=== PATIENT | female | born 1995 | race Caucasian/White ===

== ENCOUNTER 2017-12-04 04:09 | Emergency (ER) | payer OTHER ==
[2017-12-04 04:18] VITALS: PULSE 70; TEMP 97.8
[2017-12-04 04:36] LABS: Appearance,Urine Turbid (Clear); Bacteria,Urine Few /hpf; Bilirubin,Urine Negative (Negative); Blood,Urine Large (Negative); Color,Urine Yellow; Glucose,Urine (UA) Negative (Negative); Ketones,Urine Negative (Negative); Leukocyte Esterase,Urine Large (Negative); Mucus,Urine Occasional /hpf; Nitrite,Urine Negative (Negative); PH, Urine 6.5 (5.0-8.0); Protein,Urine 1+ (Negative); RBC,Urine >182 /hpf (0-5); Specific Gravity,Urine 1.018 (1.001-1.035); Squamous Epithelial Cell,Urine 8 /hpf (0-4); Urobilinogen,Urine <2.0 mg/dL (<2.0); WBC,Urine >182 /hpf (0-5)
[2017-12-04] MEDS ORDERED: AMOXIC-POT CLAV 875-125MG 1 EACH TAB PO STA (04:47)
[2017-12-04] MEDS ORDERED: PHENAZOPYRIDINE 100 MG TAB PO STA (05:08)
--- NOTE | 2017-12-04 05:08 | ED ---
Female Urogenital HPI - General Chief complaint: Urogenital Stated complaint: UTI Time Seen by Provider: 12/04/17 04:24 Source: patient Mode of arrival: ambulatory Limitations: no limitations - History of Present Illness Initial comments: 21 years old female comes in with frequency urgency dysuria, she started about 2 days, also complaining about pain in the suprapubic area she denies any fever no chills no nausea no vomiting. Past medical history is unremarkable past surgical history is unremarkable - Related Data Home Medications Medication Instructions Recorded Confirmed Levonorgestrel-Ethin Estradiol 1 tab PO DAILY 01/09/16 01/09/16 [Falmina-28 Tablet] Previous Rx's Medication Instructions Recorded Amoxicillin/Potassium Clav 1 each PO Q12HR #20 tab 01/09/16 [Augmentin 875-125 Tablet] Fluticasone Nasal [place] [Flonase 1 spray EA NOSTRIL DAILY PRN #1 01/09/16 Nasal [place]] bottle Amoxic-Pot Clav 875-125Mg 1 tab PO Q12HR #14 tablet 12/04/17 [Augmentin 875-125] Phenazopyridine [Pyridium] 200 mg PO TID #6 tablet 12/04/17 Allergies Allergy/AdvReac Type Severity Reaction Status Date / Time Sulfa (Sulfonamide Allergy Rash/Hives Verified 12/04/17 04:18 Antibiotics) Review of Systems ROS Statement: Those systems with pertinent positive or pertinent negative responses have been documented in the HPI. ROS Other: All systems not noted in ROS Statement are negative. Past Medical History Past Medical History: No Reported History Additional Past Medical History / Comment(s): HYPOGLYCEMIA History of Any Multi-Drug Resistant Organisms: None Reported Past Surgical History: No Surgical Hx Reported Past Psychological History: No Psychological Hx Reported Smoking Status: Never smoker Past Alcohol Use History: None Reported Past Drug Use History: None Reported General Exam - General Exam Comments Initial Comments: General: The patient is awake and alert, in no distress, and does not appear acutely ill. Skin: Skin is warm and dry and no rashes or lesions are noted. Eye: Pupils are equal, round and reactive to light, extra-ocular movements are intact; there is normal conjunctiva bilaterally. Ears, nose, mouth and throat: There are moist mucous membranes and no oral lesions. Neck: The neck is supple, there is no tenderness or JVD. Cardiovascular: There is a regular rate and rhythm. No murmur, rub or gallop is appreciated. Respiratory: To auscultation bilateral, no wheezing no rhonchi no distress respiratory clancy noticed Gastrointestinal: Mildly tender over suprapubic area no tenderness over the flank areas positive bowel sounds no guarding no rebounds Back: There is no tenderness to palpation in the midline. There is no obvious deformity. Musculoskeletal: Normal ROM, no tenderness, There is no pedal edema. There is no calf tenderness or swelling. No cords were appreciated. Neurological: CN II-XII intact, Cranial nerves III through XII are intact. There are no obvious motor or sensory deficits. Coordination appears grossly intact. Speech is normal. Psychiatric: Cooperative, appropriate mood & affect, normal judgment. Limitations: no limitations Course Vital Signs 12/04/17 04:16 Temperature 97.8 F Pulse Rate 70 Respiratory 18 Rate Blood Pressure 118/72 O2 Sat by Pulse 100 Oximetry UA was reviewed, it's quite unremarkable she be getting antibiotics and will send urine culture Medical Decision Making - Lab Data Lab Results 12/04/17 Range/Units 04:14 Urine Color Yellow Urine Appearance Turbid H (Clear) Urine pH 6.5 (5.0-8.0) Ur Specific [place] 1.018 (1.001-1.035) Urine Protein 1+ H (Negative) Urine Glucose (UA) Negative (Negative) Urine Ketones Negative (Negative) Urine Blood Large H (Negative) Urine Nitrite Negative (Negative) Urine Bilirubin Negative (Negative) Urine Urobilinogen <2.0 (<2.0) mg/dL Ur Leukocyte Esterase Large H (Negative) Urine RBC >182 H (0-5) /hpf Urine WBC >182 H (0-5) /hpf Urine WBC Clumps Many H (None) /hpf Ur Squamous Epith Cells 8 H (0-4) /hpf Urine Bacteria Few H (None) /hpf Urine Mucus Occasional H (None) /hpf Disposition Clinical Impression: Cystitis Disposition: HOME SELF-CARE Instructions: Urinary Tract Infection in Women (ED) Prescriptions: Amoxic-Pot Clav 875-125Mg [Augmentin 875-125] 1 tab PO Q12HR #14 tablet Phenazopyridine [Pyridium] 200 mg PO TID #6 tablet Is patient prescribed a controlled substance at d/c from ED?: No Referrals: Nonstaff,Physician [Primary Care Provider] - 1-2 days
[2017-12-04 05:47] VITALS: BP 120/80; RESP 16
== END 2017-12-04 05:48 | disposition home or self-care (01) ==
LOC: EC 04:09
DX: N30.90 Cystitis, unspecified without hematuria (principal); Z79.3 Long term (current) use of hormonal contraceptives; Z88.2 Allergy status to sulfonamides
CPT/HCPCS: 81001; 87077; 87086; 87186; 99283

== ENCOUNTER 2019-01-26 09:46 | Emergency (ER) | payer OTHER ==
--- NOTE | 2019-01-26 10:31 | ED ---
Female Urogenital HPI - General Chief complaint: Vaginal Bleeding Stated complaint: early /vaginal bleeding Time Seen by Provider: 01/26/19 09:53 Source: patient, RN notes reviewed Mode of arrival: ambulatory Limitations: no limitations - History of Present Illness Initial comments: 23-year-old female presents emergency Department with chief complaint of vaginal bleeding early . Patient states that she had a positive test on January 09. Patient states that her [facility] is Dr. Vasquez did go in for an appointment for labwork. She has scheduled next week. patient is a0. she had some mild bleeding when she wiped this morning. patient denies any current cramping did have some mild cramping. patient has no back pain no flank pain no dysuria Last Menstrual Period: 11/26/18 - Related Data Home Medications Medication Instructions Recorded Confirmed Calcium Carbonate [Calcium] 600 mg PO DAILY 01/26/19 01/26/19 Ferrous Sulfate [Feosol] 325 mg PO DAILY 01/26/19 01/26/19 Folic Acid 0.4 mg PO DAILY 01/26/19 01/26/19 Multivitamin [Multivitamins Adult 1 tab PO DAILY 01/26/19 01/26/19 Gummies] Allergies Allergy/AdvReac Type Severity Reaction Status Date / Time Sulfa (Sulfonamide Allergy Rash/Hives Verified 01/26/19 10:05 Antibiotics) Review of Systems ROS Statement: Those systems with pertinent positive or pertinent negative responses have been documented in the HPI. ROS Other: All systems not noted in ROS Statement are negative. Past Medical History Past Medical History: No Reported History Additional Past Medical History / Comment(s): HYPOGLYCEMIA History of Any Multi-Drug Resistant Organisms: None Reported Past Surgical History: No Surgical Hx Reported Past Psychological History: No Psychological Hx Reported Smoking Status: Never smoker Past Alcohol Use History: None Reported Past Drug Use History: None Reported General Exam Limitations: no limitations General appearance: alert, in no apparent distress Head exam: Present: atraumatic, normocephalic, normal inspection Neck exam: Present: normal inspection, full ROM. Absent: tenderness, meningismus, lymphadenopathy Respiratory exam: Present: normal lung sounds bilaterally. Absent: respiratory distress, wheezes, rales, rhonchi, stridor Cardiovascular Exam: Present: regular rate, normal rhythm, normal heart sounds. Absent: systolic murmur, diastolic murmur, rubs, gallop, clicks GI/Abdominal exam: Present: soft, normal bowel sounds. Absent: distended, tend erness, guarding, rebound, rigid Back exam: Absent: CVA tenderness (R), CVA tenderness (L) Course Vital Signs 01/26/19 01/26/19 09:48 11:51 Temperature 98.2 F 97.8 F Pulse Rate 77 70 Respiratory 16 18 Rate Blood Pressure 128/83 123/67 O2 Sat by Pulse 98 100 Oximetry Medical Decision Making - Medical Decision Making 23-year-old female presented for vaginal bleeding early . Patient had workup including CBC, BMP, hCG quantitative and AB Rh. Patient is A- blood type RhoGAM was ordered. Patient's primary hCG was 14,000 it did trend up to 19,000. Patient will have recheck in 2 days. And concern for miscarriage at this time. Patient will follow-up with [facility] return for any worsening symptoms. - Lab Data Result diagrams: 01/26/19 10:40 01/26/19 10:40 Lab Results 01/26/19 01/26/19 01/26/19 Range/Units 10:40 10:40 10:40 WBC 6.7 (3.8-10.6) k/uL RBC 4.43 (3.80-5.40) m/uL Hgb 12.9 (11.4-16.0) gm/dL Hct 38.8 (34.0-46.0) % MCV 87.6 (80.0-100.0) fL MCH 29.2 (25.0-35.0) pg MCHC 33.3 (31.0-37.0) g/dL RDW 13.1 (11.5-15.5) % Plt Count 234 (150-450) k/uL Neutrophils % 67 % Lymphocytes % 24 % Monocytes % 6 % Eosinophils % 1 % Basophils % 1 % Neutrophils # 4.4 (1.3-7.7) k/uL Lymphocytes # 1.6 (1.0-4.8) k/uL Monocytes # 0.4 (0-1.0) k/uL Eosinophils # 0.1 (0-0.7) k/uL Basophils # 0.0 (0-0.2) k/uL Sodium 138 (137-145) mmol/L Potassium 4.1 (3.5-5.1) mmol/L Chloride 101 (98-107) mmol/L Carbon Dioxide 30 (22-30) mmol/L Anion Gap 7 mmol/L BUN 13 (7-17) mg/dL Creatinine 0.79 (0.52-1.04) mg/dL Est GFR (CKD-EPI)AfAm >90 (>60 ml/min/1.73 sqM) Est GFR (CKD-EPI)NonAf >90 (>60 ml/min/1.73 sqM) Glucose 90 (74-99) mg/dL Calcium 9.6 (8.4-10.2) mg/dL HCG, Quant 68354.3 mIU/mL Urine Color Urine Appearance (Clear) Urine pH (5.0-8.0) Ur Specific [place] (1.001-1.035) Urine Protein (Negative) Urine Glucose (UA) (Negative) Urine Ketones (Negative) Urine Blood (Negative) Urine Nitrite (Negative) Urine Bilirubin (Negative) Urine Urobilinogen (<2.0) mg/dL Ur Leukocyte Esterase (Negative) Urine RBC (0-5) /hpf Urine WBC (0-5) /hpf Ur Squamous Epith Cells (0-4) /hpf Urine Bacteria (None) /hpf Urine Mucus (None) /hpf Blood Type A Negative Blood Type Recheck No 01/26/19 Range/Units 10:45 WBC (3.8-10.6) k/uL RBC (3.80-5.40) m/uL Hgb (11.4-16.0) gm/dL Hct (34.0-46.0) % MCV (80.0-100.0) fL MCH (25.0-35.0) pg MCHC (31.0-37.0) g/dL RDW (11.5-15.5) % Plt Count (150-450) k/uL Neutrophils % % Lymphocytes % % Monocytes % % Eosinophils % % Basophils % % Neutrophils # (1.3-7.7) k/uL Lymphocytes # (1.0-4.8) k/uL Monocytes # (0-1.0) k/uL Eosinophils # (0-0.7) k/uL Basophils # (0-0.2) k/uL Sodium (137-145) mmol/L Potassium (3.5-5.1) mmol/L Chloride (98-107) mmol/L Carbon Dioxide (22-30) mmol/L Anion Gap mmol/L BUN (7-17) mg/dL Creatinine (0.52-1.04) mg/dL Est GFR (CKD-EPI)AfAm (>60 ml/min/1.73 sqM) Est GFR (CKD-EPI)NonAf (>60 ml/min/1.73 sqM) Glucose (74-99) mg/dL Calcium (8.4-10.2) mg/dL HCG, Quant mIU/mL Urine Color Light Red Urine Appearance Cloudy H (Clear) Urine pH 7.0 (5.0-8.0) Ur Specific [place] 1.027 (1.001-1.035) Urine Protein 1+ H (Negative) Urine Glucose (UA) Negative (Negative) Urine Ketones Negative (Negative) Urine Blood Large H (Negative) Urine Nitrite Negative (Negative) Urine Bilirubin Negative (Negative) Urine Urobilinogen <2.0 (<2.0) mg/dL Ur Leukocyte Esterase Negative (Negative) Urine RBC >182 H (0-5) /hpf Urine WBC 3 (0-5) /hpf Ur Squamous Epith Cells 9 H (0-4) /hpf Urine Bacteria Few H (None) /hpf Urine Mucus Occasional H (None) /hpf Blood Type Blood Type Recheck Disposition Clinical Impression: Threatened miscarriage in early Disposition: HOME SELF-CARE Condition: Stable Instructions (If sedation given, give patient instructions): Threatened Miscarriage (ED) Additional Instructions: Please return to the Emergency Department if symptoms worsen or any other concerns. Is patient prescribed a controlled substance at d/c from ED?: No Referrals: Domenica Alatorre MD [Primary Care Provider] - 1-2 days Kylee Vasquez MD [REFERRING] - 1-2 days Time of Disposition: 12:18
[2019-01-26 11:16] LABS: Basophils % (A) 1 %; Eosinophils # (A) 0.1 k/uL (0-0.7); Eosinophils % (A) 1 %; HCT 38.8 % (34.0-46.0); HGB 12.9 gm/dL (11.4-16.0); Lymphocytes # (A) 1.6 k/uL (1.0-4.8); Lymphocytes % (A) 24 %; MCH 29.2 pg (25.0-35.0); MCHC 33.3 g/dL (31.0-37.0); MCV 87.6 fL (80.0-100.0); Mean Platelet Volume 6.6; Monocytes # (A) 0.4 k/uL (0-1.0); Monocytes % (A) 6 %; Neutrophils # (A) 4.4 k/uL (1.3-7.7); Neutrophils % (A) 67 %; Platelet Count 234 k/uL (150-450); RBC 4.43 m/uL (3.80-5.40); RDW 13.1 % (11.5-15.5); WBC 6.7 k/uL (3.8-10.6)
[2019-01-26 11:20] LABS: African American GFR (CKD) >90 (>60 ml/min/1.73 sqM); Anion Gap 7 mmol/L; Blood Urea Nitrogen 13 mg/dL (7-17); Calcium 9.6 mg/dL (8.4-10.2); Carbon Dioxide 30 mmol/L (22-30); Chloride 101 mmol/L (98-107); Glucose 90 mg/dL (74-99); Potassium 4.1 mmol/L (3.5-5.1); Sodium 138 mmol/L (137-145)
--- NOTE | 2019-01-26 11:49 | US ---
EXAMINATION TYPE: Transabdominal DATE OF EXAM: 01/26/2019 11:36 AM COMPARISON: NONE CLINICAL HISTORY: Pain. Vaginal bleeding today EXAM PERFORMED: Transvaginal (TV) and Transabdominal (TA) EXAM MEASUREMENTS: GESTATIONAL AGE / DATING Physician Established: Not yet established Dates by LMP: (8 weeks/5 days) EDC: 09/02/19 Dates by First Scan: No previous this is first scan Dates by Current Scan for: (5 weeks/1 days) - MSD MATERNAL ANATOMY Uterus: 7.3 x 3.7 x 5.6cm Right Ovary: 2.5 x 1.5 x 1.4cm Left Ovary: 2.6 x 2.4 x 2.2cm Post CDS / Adnexa: appears wnl Presence of free fluid: no Presence of corpus luteal cyst: yes, complex area left ovary = 1.8 x 1.5 x 1.7cm GESTATION / SURVEY MSD: 1.1cm (5 weeks/1 days) Yolk Sac (normal less than 6mm): 2.5mm No evidence of pole at this time Date of LMP: 11/26/18 Beta HcG (if available): Not available at this time Gestational sac with yolk sac identified within uterus. No evidence of pole at this time. Proba ble corpus luteum left ovary IMPRESSION: Findings may reflect normal early IUP. Spontaneous or ectopic difficult to exclude . Correlate with serial beta hCG and/or ultrasound.
[2019-01-26 11:52] VITALS: RESP 18
[2019-01-26 11:55] LABS: Appearance,Urine Cloudy (Clear); Bacteria,Urine Few /hpf; Bilirubin,Urine Negative (Negative); Blood,Urine Large (Negative); Color,Urine Light Red; Glucose,Urine (UA) Negative (Negative); Ketones,Urine Negative (Negative); Leukocyte Esterase,Urine Negative (Negative); Mucus,Urine Occasional /hpf; Nitrite,Urine Negative (Negative); Protein,Urine 1+ (Negative); RBC,Urine >182 /hpf (0-5); Specific Gravity,Urine 1.027 (1.001-1.035); Squamous Epithelial Cell,Urine 9 /hpf (0-4); Urobilinogen,Urine <2.0 mg/dL (<2.0)
[2019-01-26] MEDS ORDERED: Rhogam IMMUNE GLOBULIN 1,500 UNIT/1 ML IM ONE (11:59)
[2019-01-26 12:07] LABS: HCG,Quantitative Serum 19726.3 mIU/mL
[2019-01-26 13:25] VITALS: BP 122/68; PULSE 79; TEMP 97.6
== END 2019-01-26 13:24 | disposition home or self-care (01) ==
LOC: EC 09:46
DX: O20.0 Threatened abortion (principal); Z3A.01 Less than 8 weeks gestation of pregnancy; Z79.899 Other long term (current) drug therapy; Z88.2 Allergy status to sulfonamides
CPT/HCPCS: 36415; 86900; 86901; 80048; 85025; 86850; 81001; 84702; 76801; 76817; 99284; 96372; J2791

== ENCOUNTER → 2019-01-28 | Outpatient (CLI) | payer OTHER | END | disposition home or self-care (01) | LOC: LABWHC1 10:11 | PROVIDERS: ATTEND Physician Assistant | DX: O20.0 Threatened abortion (principal) | CPT/HCPCS: 36415; 84702 ==

== ENCOUNTER → 2024-04-18 | Outpatient (CLI) | payer OTHER | END | disposition home or self-care (01) | LOC: LABWHC1 12:33 → MERGE 12:33 | PROVIDERS: ATTEND Family Medicine | CPT/HCPCS: 36415; 84702 ==

== ENCOUNTER → 2024-09-05 | Outpatient (CLI) | payer OTHER ==
[2024-09-05 16:15] LABS: Prothrombin Time 11.2 sec (9.9-11.9)
[2024-09-05 16:19] LABS: BUN/Creat Ratio 22.43 Ratio (12.00-20.00); Blood Urea Nitrogen 15.7 mg/dL (9.0-27.0); Carbon Dioxide 29.5 mmol/L (21.6-31.8); Chloride 103 mmol/L (96-109); Glucose 78 mg/dL (70-110); Potassium 4.2 mmol/L (3.5-5.5); Sodium 141 mmol/L (135-145)
[2024-09-05 16:20] LABS: ALT 13 U/L (8-44); AST 17 U/L (13-35); Albumin 4.5 g/dL (3.8-4.9); Alkaline Phosphatase 60 U/L (41-126); Calcium 9.2 mg/dL (8.7-10.3); Globulin 2.5 g/dL (1.6-3.3); Total Bilirubin 0.2 mg/dL (0.3-1.2)
[2024-09-05 17:11] LABS: HCT 37.3 % (37.2-46.3); HGB 12.2 g/dL (12.0-15.0); MCH 29.2 pg (27.0-32.0); MCHC 32.7 g/dL (32.0-37.0); MCV 89.2 FL (80.0-97.0); Mean Platelet Volume 9.6 FL (9.5-12.2); NRBC Per 100 WBC 0 X 10*3/uL (0.00-0.01); Platelet Count 338 X 10*3/uL (140-440); RBC 4.18 X 10*6/uL (4.10-5.20); RDW 12.1 % (11.5-14.5); WBC 7.79 X 10*3/uL (4.50-10.00)
== END | disposition home or self-care (01) ==
LOC: LABPAT 11:39
PROVIDERS: ATTEND Orthopaedic Surgery
DX: Z01.812 Encounter for preprocedural laboratory examination (principal); Z22.322 Carrier or suspected carrier of Methicillin resistant Staphylococcus aureus; M47.816 Spondylosis without myelopathy or radiculopathy, lumbar region; I15.8 Other secondary hypertension; Z79.899 Other long term (current) drug therapy
CPT/HCPCS: 80053; 85027; 85610; 86850; 86900; 86901; 87070

== ENCOUNTER 2024-09-15 10:11 | Day surgery (SDC) | payer OTHER ==
[~2024-09-15 10:11] MED LIST: HYDROmorphone 0.5 MG/0.5 ML SYRINGE IVP PRN; LIDOCAINE 1% (10MG/ML) FOR IV START INTRADERMA PRN; ONDANSETRON 4 MG/2 ML VIAL IVP PRN; TRANEXAMIC 1,000 MG/100ML-NACL 1,000 MG in SALINE 1 100ML.BAG IVPB PRN; fentaNYL (PF) 50 MCG/ML 2 ML AMP IVP PRN
[2024-09-15] MEDS: IV FLUID CONTINUATION 1,000 ML IV ONE ×3 (10:53→13:54)
[2024-09-15 10:56] LABS: Glucose,Whole Blood 100 mg/dL (70-110)
[2024-09-15] MEDS: GABAPENTIN 300 MG CAP PO PRN (10:57)
[2024-09-15] MEDS: ACETAMINOPHEN TAB 500 MG TAB PO PRN (10:57)
[2024-09-15] MEDS: LACTATED RINGERS 1,000 ML IV SCH (10:59)
[2024-09-15] MEDS: ONDANSETRON 4 MG/2 ML VIAL IVP ONE (10:59)
[2024-09-15] MEDS: DEXAMETHASONE SOD PHOSPHATE 4 MG/ML 1 ML VIAL IV ONE (10:59)
[2024-09-15] MEDS: MIDAZOLAM 2 MG/2 ML VIAL IV PRN (11:03)
--- NOTE | 2024-09-15 11:53 | P.HPOR ---
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 Her symptoms include progressive low back pain with severe throbbing and shooting pain during bending, twisting, prolonged sitting, and stair climbing. 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 Physical examination demonstrated positive bilateral SI joint tests, restricted lumbar ROM, and paralumbar tenderness. Previous treatment included multiple SI joint injections with >50% relief, with the most recent left SI joint injection on 06/20/24 providing one month of relief. Based on clinical findings and imaging, surgical intervention with L5-S1 medial branch transection has been recommended. 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 Carlos presents to the office today, 08/10/24, for a recheck of her lumbar and bilateral SI joint pain. She previously received a left SI joint injection on 06/20/24 wit 1 month of relief. She has had several other SI joint injections prior to this as well, 3 on the left and 1 on the right all wit greater than 50% relief. Patient continues to report pain across her low back that is continuing to progress. She states she is unable to bend or twist without severe throbbing, shooting pain throughout the low back and buttocks. She states that prolonged sitting and going up the stairs also causes worsening symptoms. She notes mild, temporary relief with home heat therapies. She notes her walking is limited and she has to take frequent breaks due to her worsening low back pain. She is currently taking Tylenol for relief of her current symptoms. Patient ambulates independently. * Patient denies any f/c/sob/cp, perineal numbness or tingling, bowel, or bladder incontinence/retention. * The patients past social, medical, family, surgical history, as well as review of systems, have been reviewed. Please refer to the History and Physical form that has been scanned into our electronic medical record system. * 16 points review of systems completed and as stated in HPI, all other systems reviewed are negative. PAST TREATMENTS: PAST IMAGING: -YES, xray and MRI - TRAUMA RELATED: -NO - WORK RELATED: -NO - PT IN LAST 6 MONTHS: -NO - PHYSICIAN DIRECTED HOME EXERCISE PROGRAM: -YES - ACTIVITY MODIFICATION: -YES - MEDICATIONS: -YES, Tylenol - ALTERNATIVE INTERVENTIONS (CHIROPRACTIC, ACUPUNCTURE, MASSAGE, RICE): -YES - BRACING: -NO - INJECTIONS (BERENICE, TF, RFA): -YES, several left and right SI joint injections with >50% relief MEDICAL HISTORY: Past Medical History: REVIEWED STATED IN CHART Past Surgical History: REVIEWED STATED IN CHART Social History: REVIEWED STATED IN CHART SMOKING: Never smoker ETOH: None SUBSTANCES: None Family History: REVIEWED STATED IN CHART P1 Current Medications: Rx: TylenoL Ref: 0 P1 PHYSICAL EXAM: General: AOX3, NAD, Well hydrate, well nourished, in no acute distress HEENT: No lumps or masses Extremities: No color changes, no pooling Heart: RRR, no murmur, no gallop Lungs: CTAB, no w/r/r INTEGUMENT: Appearance: Normal color and turgor Surgical Incisions: N/A Hairy Patches: ABSENT Dorsal Skin Dimples: Normal [employer] spots: ABSENT PALPATION: TTP Midline: NO Paracervical: NO Parathoracic: NO Paralumbar: YES SIJ TESTING (Carmen's, FABER4, Compression, Distraction, Thigh Thrust, Hip T hrust): TESTED/NOT TESTED * POSITIVE FINDINGS: B/L Carmen's, FABER4, Compression, Distraction, Thigh Thrust, Hip Thrust NEGATIVE FINDINGS: N/A POSTURAL BALANCE: Coronal: BALANCED Sagittal: BALANCED Shoulder height: LEVEL Pelvic Girdle: LEVEL ROM AND APPEARANCE: Neck: UNRESTRICTED Lumbar: RESTRICTED Shoulders: Symmetrical Hips: Symmetrical Knees: Symmetrical Hands: Symmetrical Feet: Symmetrical VASCULAR STATUS: PALPABLE PULSES B/L UE AND LE 2/4 RAD/ULNAR/DP/PT Edema: NONE NEUROLOGICAL EXAMINATION: Mental Status: Awake, alert, fully oriented with normal attention, concentration, and memory. Fluent appropriate speech. CRANIAL NERVES: I: Olfactory not assessed. II: Visual acuity normal, no visual field deficit noted with confrontation. III, IV: Normal pupillary reflexes & intact extraocular movements without nystagmus. V, : Intact symmetrical facial sensation. VII: Intact symmetrical facial motor movement: Hearing intact. IX, X: Intact gag, swallow, & normal voice. XI: Sternocleidomastoid, trapezius function intact. XII: Tongue midline with normal movements. TENSIONING: * L'HERMITTE'S SIG:NEG SPURLUNG'S SIGN:NEG UPPER EXTREMITY TENSIONING SIGNS: NEG CUBITAL TUNNEL COMPRESSION:NEG TINELS AT WRIST:NEG STRAIGH LEG RAISE:NEG CONTRALATERAL STRAIGHT LEG RAISE: NEG MOTOR EXAM (0-5/5, NT) Muscle appearance: Symmetrical, without signs of atrophy or dystrophy UPPER EXTREMITY RIGHT LEFT Shoulder Abduction 5 5 Biceps 5 5 Triceps 5 5 Wrist Extension 5 5 Hand Intrinsics 5 5 Maintenance Mechanic Engine 5 5 LOWER EXTREMITY RIGHT LEFT Hip Flexion 5 5 Knee Extension 5 5 Knee Flexion 5 5 Dorsiflexion 5 5 Plantarflexion 5 5 EHL 5 5 FHL 5 5 REFLEXES (0-4/2, NT): RIGHT LEFT Bicep 2 2 Brachioradialis 2 2 Triceps 2 2 Patellar 2 2 Achilles 2 2 PATHOLOGICAL REFLEXES: RIGHT LEFT SQUIRES'S ABSENT ABSENT CLONUS ABSENT ABSENT BABINSKI ABSENT ABSENT RECTAL TONE: INTACT/NT SENSATION (0-4, NT): Sensation intact to LT and Pain * C5-T1 distribution BUE * L2-S2 distribution BLE *Exceptions below* DERMATOMAL DEFICIT/RADICULAR PATTERN: N/A GAIT AND FUNCTIONAL EVALUATION: AMBULATORY AID NONE ROMBERG'S TEST INTACT HAND AND FINGER DEXTERITY INTACT YES DYSDIADOCHOKINESIA EXAM NEG B/L YES TOE/HEEL WALK INTACT WITH GOOD BALANCE YES SQUAT AND RISE W/O ASSISTANCE TO 60 DEG KNEE FLEXION ABLE with pain SINGLE LEG STANCE ABLE with pain TRENDELENBURG NEG IMAGING: XRAY Date: 10/15/23 Location: [facility] Region: lumbar Views: MV IMAGES ARE REVIEWED WITH THE PATIENT IN OFFICE AND DEMONSTRATE THE FOLLOWING: FINDINGS: Images reviewed with pt. Bertolotti syndrome is present b/l at L5-S1 with pseudojoints forming on both sides. There is rudimentary disc at L5-S1 at this level as well. Facet arthropathy present at both L4-5 and L5-S1. No lesions noted. NO fractures. Alignment is stable through f/e films. There is some hypermobility of L4-5 due to the L5-S1 segment. Disc space is reasonable. MRI Date: 10/26/23 Location: [facility] Region: lumbar Contrast: N IMAGES ARE REVIEWED WITH THE PATIENT IN OFFICE AND DEMONSTRATE THE FOLLOWING: FINDINGS: IMAGES REVIEWED DEMONSTRATE L4-5 HNP WITH LEFT PARACENTRAL PROTRUSION CAUSING CENTRAL AND FORAMINAL STENOIS THAT IS MODERATE TO SEVERE WITH ENCROACHMENT ON THE L4 ROOT IT EXITS AND THE L5 IT TRAVERSES. THERE IS ALSO A LARGE RIGHT L3-4 FACET CYST NOTED CAUSING CENTRAL AND FORAMINAL STENOSIS THAT IS MODERATE AT THIS LEVEL. THERE ARE NO FRACTURES OR LESIONS NOTED AT THIS TIME. IMPRESSION: It was my pleasure to have seen and examined Araceli. I reviewed the patient's clinical syndrome, physical findings, and imaging studies during the appointment today. It is my impression that the patient has a diagnosis of. 1.L5-S1 facet arthropathy, SEVERE 2.Bilateral sacroiliitis 3.Low back pain PLAN: DISCUSSION: -I have discussed with the patient their clinical signs and symptoms, imaging, and treatment options. We have discussed risks, benefits, potential outcomes and natural course as pertains top their issues. The patient understands and would like to proceed as follows below: SURGICAL RECOMMENDATION -L5-S1 medial branch transection THERAPIES -Cont. with home exercises and home PT exercises as able -Cont. with Heat/Ice as warranted -Cont. with supplementation Vit D, Vit C, Ca2+, High protein diet -OK for massage or other alternative treatment modalities as able. If it exacerbates your sx do not continue ACTIVITY -Recommend walking up to 30 min 2x daily on a flat easy surface with good support. -WORK STATUS: N/A MEDICATIONS -Take as directed -Cont. home medications as directed by your PCP. Check with your PCP for any medication interactions or issues if needed. IMAGING -N/A INJECTIONS -N/A Spine Surgery Risk Review Ms. Carlos is presenting for evaluation of lumbar pain. It was my pleasure to have seen and examined Ms. Carlos. In our visit today we have had a chance to go over subjective complaints, physical examination findings and treatments including the natural course history without intervention and various interventional options. The patients imaging demonstrates: XRAY Date: 10/15/23 Location: [facility] Region: lumbar Views: MV IMAGES ARE REVIEWED WITH THE PATIENT IN OFFICE AND DEMONSTRATE THE FOLLOWING: FINDINGS: Images reviewed with pt. Bertolotti syndrome is present b/l at L5-S1 with pseudojoints forming on both sides. There is rudimentary disc at L5-S1 at this level as well. Facet arthropathy present at both L4-5 and L5-S1. No lesions noted. NO fractures. Alignment is stable through f/e films. There is some hypermobility of L4-5 due to the L5-S1 segment. Disc space is reasonable. MRI Date: 10/26/23 Location: [facility] Region: lumbar Contrast: N IMAGES ARE REVIEWED WITH THE PATIENT IN OFFICE AND DEMONSTRATE THE FOLLOWING: FINDINGS: IMAGES REVIEWED DEMONSTRATE L4-5 HNP WITH LEFT PARACENTRAL PROTRUSION CAUSING CENTRAL AND FORAMINAL STENOSIS THAT IS MODERATE TO SEVERE WITH ENCROACHMENT ON THE L4 ROOT IT EXITS AND THE L5 IT TRAVERSES. THERE IS ALSO A LARGE RIGHT L3-4 FACET CYST NOTED CAUSING CENTRAL AND FORAMINAL STENOSIS THAT IS MODERATE AT THIS LEVEL. THERE ARE NO FRACTURES OR LESIONS NOTED AT THIS TIME. On physical exam, Ms. Carlos demonstrates: Patient continues to report pain across her low back that is continuing to progress. She states she is unable to bend or twist without severe throbbing, shooting pain throughout the low back and buttocks. She states that prolonged sitting and going up the stairs also causes worsening symptoms. She notes mild, temporary relief with home heat therapies. She notes her walking is limited and she has to take frequent breaks due to her worsening low back pain. She is currently taking Tylenol for relief of her current symptoms. Patient ambulates independently. I have explained to the patient that as their condition progresses it will cause further neurological deficits and eventual paralysis. Based on the patients imaging, physical exam, and the rapid progression and disabling nature of their symptoms, at this time I recommend surgery in the form of a: L5-S1 medial branch transection. I discussed the risk and benefits of this procedure at length with Ms. Carlos. The patient agreed to considered pursuing the procedure abovementioned. Prior to surgery, she should follow up with her PCP (Cardio, ID, IM etc) for clearance. Questions were invited and answered, and the patient wishes to proceed as outlined below. Currently, I am recommendin.L5-S1 medial branch transection 2.Follow up with PCP for surgical clearance 3.Review of surgical risks and benefits as well as an educational packet on the proposed surgical procedure. Risks: All surgical procedures come with inherent risks, including those related to positioning, anesthesia, intraoperative findings, and postoperative complications. It is important to understand that surgery does not come with any guarantee of a successful outcome as complications and adverse events are always possible. The patient was given a handout in office today discussing the surgical procedure and risks associated with the intervention, both of which were discussed with the patient. These risks include but are not limited to the following: * Experiencing same, different or even worse symptoms in back, neck, arms, or legs compared to before surgery. Requiring further surgery or other forms of treatment presently or at some time in the future at same or other levels of the intended spine surgery. On an extreme but fortunately relatively rare basis severe complication such as blindness, stroke, heart attack, temporary and/or permanent nerve injury, paralysis, coma, or may occur, sometimes without known explanation. Surgical complications may include but are not limited to risk of infection, fluid accumulation in the surgical dissection site, including a seroma or hematoma, that requires additional surgery, wound drainage, bleeding, new numbness or weakness, vision changes/loss, spinal fluid leakage, non-healing and/or infected incision, headaches, difficulty or inability to swallow, hoarseness, hemopneumothorax, pneumothorax, impotence, retrograde ejaculation, vaginal dryness; injury to nerves, spinal cord, blood vessels, lymphatics or other vital organs (i.e., bowel injury, injury to the great vessels); heterotopic bone formation; complications related to the hardware such as screws, rods, cages including misplaced hardware, device failure, instrumentation at the wrong spine level, hardware fracture/breakage, or hardware loosening; vertebral failure of the spinal column above or below the newly placed hardware; retained surgical instrumentations or devices and the need for further surgery. * Medical risks of the planned spine surgery include but are not limited to generalized Infections to the whole body or local areas outside of the surgical site (sepsis), heart attack, bleeding, anaphylaxis, meningitis, seizure, epilepsy, hearing loss, burn simental, laceration of the head or other areas of the body, bruising, hypersensitivity of the skin, bladder over distension; allergic reaction; shoulder injury related to positioning; fat, blood and air clots to other areas of the body like heart, lungs, brain; failure of internal organs such as lungs, kidneys, liver and excessive bleeding. If blood transfusions are necessary, note that transfusions may cause intolerance reactions such as anaphylaxis or other complex reactions. Despite best efforts, the results of spine surgery might not heal in terms of bone, soft tissues such as skin, fascia, ligaments, and joints. Additionally, in order to achieve best possible results, spine surgery may be carried out beyond the initially planned levels and involve decompression, fusion including insertion of hardware at levels other than the original intended area of surgical interest change some portions of the procedure in order to ensure the best possible outcomes. With spine surgery and spinal fusion, there are different off label uses of instrumentation (devices, implants and hardware) as well as biological substances (bone morphogenic proteins, demineralized bone matrix) as well as using extra bone from allograft sources (i.e. cadaver bone) or autograft (iliac crest bone, ribs, or the spine itself). The patient has been given information about these practices and their inherent risks and benefits. [facility] is an educational center that serves as a training facility for neurosurgical and orthopedic STRATEGIC ACCOUNT MANAGER and Nursing students. Physician assistants are medically trained surgical providers who function in the outpatient, inpatient, and operating room setting under the direct supervision of the attending surgeon. [facility] has multiple operating rooms with single and overlapping rooms running daily. They currently function under the required guidelines as produced by the [facility] Finance Committee with regards to the overlapping rooms and will continue to comply with changes to this policy as they occur. The requirements include and are complied with as follows: (1) the critical portions of the overlapping rooms will not occur at the same time, (2) the attending physician will be physically present during the critical portions of the procedure and immediately available during the entire case, and (3) a back-up attending is designated should the primary attending not be immediately availab le. The patient has had a chance to review all the listed information, has been given print outs detailing this information, and has had all his/her questions answered to their satisfaction. It was my pleasure to have seen and examined Ms. Carlos. In our visit today we have had a chance to go over my understanding of our patient's current condition, the natural course history without intervention and various interventional options. Questions were invited and answered, and the patient wishes to proceed as outlined above. I have seen and examined the patient for 25 minutes and we have spent more than 50% of the time in repeat and detailed counseling about the patient's condition, its natural course history with out and as much as can be predicted with surgery and re-review of various surgical treatment options. In conclusion, Ms. Carlos requested we proceed with the above suggested surgery and are willing to accept risks and limitations of the suggested surgery as nature of the disease process and our best attempts at treatment for the condition. MEDICAL NECESSITY NOTE: Ms. Carlos demonstrates clear medical necessity for L5-S1 medial branch transection due to documented chronic, progressive lumbar and bilateral SI joint pain that has failed conservative management. The patient exhibits significant functional limitations affecting activities of daily living, including inability to bend, twist, or maintain prolonged sitting positions without severe pain. Previous SI joint injections, while providing temporary relief (>50%), have not offered sustained improvement. 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 The patient's condition shows evidence of neurological compromise with potential for further deterioration if left untreated. SURGICAL RATIONALE NOTE: The recommendation for L5-S1 medial branch transection is based on multiple clinical factors includin) documented failure of conservative treatments including medication management and injection therapy, 2) presence of anatomical abnormalities confirmed by imaging studies that correlate with the patient's symptoms, 3) progressive nature of symptoms with increasing functional limitations, and 4) risk of further neurological deterioration without surgical intervention. The chosen surgical approach specifically targets the pain- generating structures while minimizing disruption to surrounding tissues. The patient has demonstrated good candidacy for surgery through previous positive response to diagnostic injections, appropriate BMI, and absence of contraindications. The proposed procedure offers the best opportunity for long- term pain relief and functional improvement while addressing the underlying pathological changes at the L5-S1 level. FOLLOW UP: POST OP PLAN AT NEXT VISIT: RECHECK PATIENT EDUCATION: Medications Reviewed: YES In our visit today Ms. Carlos and I have had a chance to go over my understanding of the patient's current condition, the natural course history without intervention and various interventional options. Questions were invited and answered, and the patient wishes to proceed as outlined above. I will be sure to keep you updated after Ms. Carlos returns here for further follow-up. Thank you again for your referral. Please do not hesitate to contact me if you have any further questions. Signed and authenticated by: Beth Armstrong [facility] [address] [place] [place] [address] . This message is confidential, intended only for the named recipient(s) and may contain information that is privileged or exempt from disclosure under applicable law. If you are not the intended recipient(s), you are notified that the dissemination, distribution or copying of this information is prohibited. If you received this message in error, please notify the sender then delete this message. # SIGNED BY Beth Leon (GOO)08/22/2024 08:21AM Past Medical History Past Medical History: No Reported History Additional Past Medical History / Comment(s): hx. 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 History of Any Multi-Drug Resistant Organisms: None Reported Past Surgical History: No Surgical Hx Reported Additional Past Surgical History / Comment(s): Pain clinic injection, wisdom teeth extraction Past Anesthesia/Blood Transfusion Reactions: No Reported Reaction Smoking Status: Never smoker - Past Family History Father Family Medical History: Cancer Additional Family Medical History / Comment(s): stage 4 lung cancer, blood clot near heart - unsure Mother Family Medical History: COPD Medications and Allergies Home Medications Medication Instructions Recorded Confirmed Type Acetaminophen Tab [Tylenol Tab] 1,000 mg PO Q6HR PRN 09/12/24 09/15/24 History L.acidoph,Paracasei, B.lactis 1 tab PO DAILY 09/12/24 09/15/24 History [Probiotic] Allergies Allergy/AdvReac Type Severity Reaction Status Date / Time Sulfa (Sulfonamide Allergy Rash/Hives Verified 09/15/24 10:36 Antibiotics) Physical Examination Osteopathic Statement: *. No significant issues noted on an osteopathic structural exam other than those noted in the History and Physical/Consult.
[2024-09-15] MEDS ORDERED: ePHEDrine 50 MG/ML 1 ML VIAL ONE (12:12)
[2024-09-15] MEDS ORDERED: TRANEXAMIC 1,000 MG/100ML-NACL PREMIX BAG ONE (12:12)
[2024-09-15] MEDS ORDERED: PROPOFOL 10 MG/ML 20 ML VIAL IV ONE (12:12)
[2024-09-15] MEDS ORDERED: MIDAZOLAM 2 MG/2 ML VIAL ONE (12:12)
[2024-09-15] MEDS ORDERED: fentaNYL (PF) 50 MCG/ML 2 ML AMP ONE (12:12)
[2024-09-15] MEDS ORDERED: LIDOCAINE 1% INJ 10MG/ML (20 ML MDV) ONE (12:12)
[2024-09-15] MEDS ORDERED: HYDROmorphone (PF) 1 MG/ML ONE (12:12)
[2024-09-15] MEDS ORDERED: SUCCINYLCHOLINE CHLORIDE 200 MG/10 ML VIAL IV ONE (12:12)
[2024-09-15] MEDS: BUPIVACAINE (PF) 0.5% 30 ML VIAL SQ ONE ×2 (12:38→12:47)
[2024-09-15] MEDS: LIDOCAINE 2%-EPI 1:100,000 20 ML VIAL SQ ONE ×2 (12:38→12:47)
--- NOTE | 2024-09-15 13:49 | FL ---
EXAMINATION TYPE: FL guidance operating room, XR lumbar spine 2 or 3V DATE OF EXAM: 09/15/2024 CLINICAL INDICATION: Female, 28 years old with history of L5-S1 Transection, low back pain. TECHNIQUE: Fluoroscopy. 2 views lumbar spine. COMPARISON: Lumbar spine x-ray 05/25/2024. FINDINGS: Fluoroscopic guidance was provided during L5-S1 transection procedure performed by Dr. Cornelia mandel. A total of 69.8 seconds of fluoroscopic time was utilized during the procedure and 4 spot i mages are acquired. Disc space loss at L5-S1 level is seen. TOTAL DAP = 11.47 Gycm2. IMPRESSION: As Above. [facility], , 09/15/2024 1:47 PM
[2024-09-15 13:59] VITALS: TEMP 97.6
[2024-09-15 14:50] VITALS: RESP 16
[2024-09-15] MEDS: HYDROcodone/APAP 7.5-325MG 1 EACH TAB PO ONE (15:18)
[2024-09-15 15:23] VITALS: BP 105/64; PULSE 96
--- NOTE | 2024-09-15 16:47 | P.OP ---
Date of Procedure: 09/15/24 Preoperative Diagnosis: 1.L5-S1 facet arthropathy, SEVERE 2.Bilateral sacroiliitis 3.Low back pain Postoperative Diagnosis: 1.L5-S1 facet arthropathy, SEVERE 2.Bilateral sacroiliitis 3.Low back pain Procedure(s) Performed: 1. 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 Her symptoms include progressive low back pain with severe throbbing and shooting pain during bending, twisting, prolonged sitting, and stair climbing. 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 Physical examination demonstrated positive bilateral SI joint tests, restricted lumbar ROM, and paralumbar tenderness. Previous treatment included multiple SI joint injections with >50% relief, with the most recent left SI joint injection on 06/20/24 providing one month of relief. Based on clinical findings and imaging, surgical intervention with L5-S1 medial branch transection has been recommended. Description of Procedure: L5-S1 BILATERAL ENDO MBT The patient was seen and examined in the preoperative area. All preoperative protocols were followed. Informed consent was obtained, risks and benefits of the procedure were discussed at length. Risks including bleeding infection damage to the surrounding tissue and risk of reoperation were discussed with the patient. Risk of anesthesia up to and including was discussed with the patient. These are outlined in the risk review. They were willing to accept these risks and all of the risks of surgery. The patient was given a weight- based dose of antibiotics in the form of 2 g Ancef. The patient was seen and evaluated by the anesthesia team who deemed them fit for surgery. The site was marked, the patient was willing to proceed with the procedure. The patient was transferred to the operative suite by the Department of anesthesia. They were then drifted off to sleep by the department anesthesia and GETA was performed. The patient tolerated this well. Once confirmation of lines and ventilation the patient was transferred to a [prone Darío table very carefully]. All bony prominences including wrists, elbows, axilla, chest, hips, and thighs, and feet were padded very well. Special attention was paid to the genitalia and these were padded accordingly. SCDs were placed on bilateral lower extremities and were connected. Arms were well padded and placed [on arm boards up and out in the 90/90 position]. Once in position, again we confirmed good ventilation capabilities and that lines were running appropriately. The patient's lumbar spine was then exposed. 1010s were placed outlining the incision site. Standard alcohol was used to clean the incision site and allowed to dry. C-arm was used to biomark the patient and confirm level for incision which was marked with a skin marker. Operative briefing was performed with all teams and everyone in agreement to proceed. The patient was then prepped and draped in a normal sterile fashion. Timeout was then performed and all parties were in agreement with the procedure to be performed. 18-gauge needle and was then used to localize the left side L5-S1 facet joint. Lidocaine 2% with epi and Marcaine .25% w/o placed in this area. Skin yesica was then made and a trocar for the scope was entered. X-ray used to localize this area. Once this was confirmed an accessory portal was made and a trocar placed through here. We then used the ArthroCare wand to skeletonize the transverse process on the left-hand side at L5-S1 as well as sacral ala. This was then followed out medially until the L5-S1 facet joint medially and mamillary process was identified as well as the ligament in this area. Nerve was identified at L5-S1 level and visualized directly when it was transected. ArthroCare wand was then used to burn the area to retract the nerve ends. The scope was lavaged with pictures taken in this area and inspected there was no damage or issues and no bleeding. The scope was removed. This was then repeated on the contralateral side for L5-S1 MBT on the right side as well. Fluoroscopic localization was done, followed by local anesthetic. Skin nicks made, scope introduced and MBT done as described above. The scope was lavaged with pictures taken in this area and inspected there was no damage or issues and no bleeding. The scope was removed. The wounds were then cleaned and simple stitches were placed in the skin and they were glued. These were then dressed sterilely with Band-Aids. The patient was transferred back to their hospital bed atraumatically. Patient was then awakened and extubated by the department of anesthesia having tolerated the procedure very well with no complications. They were transferred to the postoperative care unit in stable condition.
== END 2024-09-15 15:50 | disposition home or self-care (01) ==
LOC: OR 10:11
PROVIDERS: ATTEND Orthopaedic Surgery
DX: M48.061 Spinal stenosis, lumbar region without neurogenic claudication (principal); M47.817 Spondylosis without myelopathy or radiculopathy, lumbosacral region; M46.1 Sacroiliitis, not elsewhere classified; Z88.2 Allergy status to sulfonamides
CPT/HCPCS: 81025; 72100; 64772; J2250; J0330; J1100; J0690; J2405; J2003; J3010; J1171; J2704; J0665